=== PATIENT | male | born 1965 | race Caucasian/White ===

== ENCOUNTER 2021-05-09 13:05 | Observation (INO) | payer BC ==
[2021-05-09] VITALS (9 sets, daily range): BP systolic 118–137; BP diastolic 66–84; PULSE 73–85; TEMP 97.1–98.7
[~2021-05-09] VITALS: Ht 172.7 cm; Wt 104.4 kg
[2021-05-09] MEDS ORDERED: NAPROSYN500 MG PO (14:42)
[2021-05-09] MEDS ORDERED: FLOMAX 0.40.4 MG/CAP PO (14:42)
[2021-05-09] MEDS ORDERED: NORCO 325 MG-51 TAB PO (14:42)
--- NOTE | 2021-05-09 19:19 | NUR ---
PATIENT FROM PACU PER HOSP BED, PRESENT. IVF AND VANCOMYCIN INFUSING TO L HAND IV SITE WITH NO PROBLEMS. OXYGEN SAT AT 95 PERCENT ON ROOM AIR, PATIENT CAME UP FROM PACU ON OXYGEN THAT WAS REMOVED BY PACU STAFF. PATIENT DENIES ANY PAIN AT THIS TIME, DENIES CHEST PAIN/SOA/NAUSEA AT THIS TIME.
--- NOTE | 2021-05-09 22:21 | NUR ---
PATIENT VOIDING, URINE MED RED TINGED WITH OCCASIONAL RED FLECKS, NO GRAVEL OBSERVED WITH STRAINING OF URINE. PATIENT CURRENTLY RESTING WITH EYES CLOSED, AT BEDSIDE ALSO SLEEPING. IV FLUIDS INFUSING WITH NO PROBLEMS. PATIENT CONTINUES ON ROOM AIR WITH OXYGEN SATURATIONS AROUND MID 90'S (94-95). OBSERVED BREATHING NONLABORED AND EVEN.
[2021-05-10] VITALS: BP 110/71; PULSE 55; TEMP 97.6
[2021-05-10 00:21] VITALS: BP 110/70; PULSE 63; TEMP 97.6
--- NOTE | 2021-05-10 01:24 | NUR ---
VOIDED MED RED TINGED URINE WITH RED FLECKS AND NO GRAVEL OBSERVED WITH STRAINING, OBSERVED RED FLECKS WITH STRAINING. PATIENT DENIES ANY NEEDS OR COMPLAINTS AT THIS TIME.
[2021-05-10 04:00] VITALS: BP 124/71; PULSE 53; TEMP 97.6
[2021-05-10 06:59] VITALS: BP 121/74; PULSE 57; TEMP 98.4
--- NOTE | 2021-05-10 07:02 | NUR ---
CHANGE OF SHIFT REPORT GIVEN TO DAY SHIFT NURSE, MARIA LUISA DICKSON.
[2021-05-10] MEDS ORDERED: FLOMAX 0.40.4 MG/CAP PO (07:27)
[2021-05-10] MEDS ORDERED: MACROBID 1100 MG/CAP PO (07:27)
--- NOTE | 2021-05-10 07:55 | NUR ---
REPORT RECIEVED FROM ELLYN. NO SIGNS OR SYMPTOMS OF DISTRESS. NO COMPLAINTS OF PAIN OR DYSPNEA. CALL LIGHT WITHIN REACH.
--- NOTE | 2021-05-10 08:53 | NUR ---
PT DISCHARGED. NO PAIN OR DYSPNEA. NO SIGNS OF DISTRESS. IV REMOVED. ALL QUESTIONS ANSWERED.
== END 2021-05-10 08:54 | disposition home or self-care (01) ==
LOC: SURG 13:05
PROVIDERS: ADMIT Urology
DX: N20.1 Calculus of ureter (principal); N39.0 Urinary tract infection, site not specified; Z79.891 Long term (current) use of opiate analgesic; Z79.899 Other long term (current) drug therapy
CPT/HCPCS: C1769; C2617; G0008; G0378; G0379; J1100; J1885; J2405; J2704; J3010; J3370; J7030; J7040; J7050; Q9967